=== PATIENT | female | born 1995 | race Caucasian/White ===

== ENCOUNTER 2020-08-08 06:27 | Inpatient (IN) ==
[2020-08-08] MEDS ORDERED: BETADINE SOLN ONE (06:36)
[2020-08-08] MEDS ORDERED: PITOCIN ONE (06:36)
[2020-08-08] MEDS ORDERED: D5 1/2 NS 1000 ML 1,000 ML IV ONE (06:36)
[2020-08-08] MEDS ORDERED: D5LR 1L W PITOCIN 10 UNITS/L 10 UNITS/1,000 ML BAG IV ONE (06:37)
[2020-08-08] MEDS ORDERED: D5 1/2 NS 1L W PITOCIN 20 UNITS/L 20 UNITS/1,000 ML BAG IV ONE (06:37)
[2020-08-08] MEDS ORDERED: LR 1000 ML IV 1,000 ML IV ONE (07:01)
--- NOTE | 2020-08-08 07:05 | DR.OB ---
OB Quick Note - Assessment/Plan Assessment/Plan: L&D 08/08/20 at 6:55am S-No complaint except CTX. O-Afebrile,VSS XMB=716 with good LTV, +accel, no decel. CTX=q 1 1/2 min., mild to moderate by palpation CVX=5cm/75%/0/VTX AROM with clear fluid. IUPC and FSE placed. A-IUP at 39 2/7 weeks for induction P-Begin pitocin augmentation Anticipate
[2020-08-08] MEDS ORDERED: FENTANYL INJ 100 mcg ONE (07:22)
[2020-08-08] MEDS ORDERED: NAROPIN EPIDURAL 0.2% 100 ML ONE (07:23)
[2020-08-08] MEDS ORDERED: MORPHINE SULFATE INJ 2 MG INJ IVP PRN (08:26)
[2020-08-08] MEDS ORDERED: D5LR 1L W PITOCIN 10 UNITS/L 10 UNITS/1,000 ML BAG IV PRN (08:26)
[2020-08-08] MEDS ORDERED: PITOCIN IVP ONE (08:26)
[2020-08-08] MEDS ORDERED: D5 1/2 NS 1000 ML 1,000 ML IV SCH (08:26)
[2020-08-08] MEDS ORDERED: PHENERGAN INJ 25 MG IM PRN ×2 (08:26→10:10)
[2020-08-08] MEDS ORDERED: REGLAN INJ 10 MG VIAL IVP PRN (08:26)
[2020-08-08] MEDS ORDERED: NUBAIN INJ 200 MG VIAL MULTIDOSE IVP PRN (08:26)
[2020-08-08] MEDS ORDERED: ZOFRAN INJ 4 MG VIAL ONE (09:02)
--- NOTE | 2020-08-08 10:54 | DR.OB ---
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 Head delivered over intact perineum. Nuchal cord x 1 noted and reduced. Nose and mouth bulb suctioned. Body delivered over intact perineum. Cord clamped x 2 and cut. Infant handed to attendant. Cord sent for gases. Placenta delivered spontaneously / intact / 3 vessel cord. No CVX / vaginal / perineal tears noted. Viable male , VTX/OA, wt=8'14" and 8/9, stable to NBN. Mother stable to RR. CZG=[id number].
[2020-08-08] MEDS ORDERED: DERMOPLAST PAIN RELIEF SPRAY TOP PRN (11:45)
[2020-08-08] MEDS ORDERED: ADACEL or BOOSTRIX TDaP VACCINE IM ONE ×2 (11:45→16:00)
[2020-08-08] MEDS ORDERED: AMBIEN PO PRN (11:45)
[2020-08-08] MEDS ORDERED: MILK OF MAGNESIA PO PRN (11:45)
[2020-08-08] MEDS: D5 1/2 NS 1000 ML 1,000 ML with PITOCIN 20 UNITS IV SCH ×4 (17:15→22:19)
[2020-08-08] MEDS: MOTRIN TAB 800 MG PO PRN (17:39)
[2020-08-09 04:37] LABS: HEMATOCRIT 29.4 % (36.0-47.0); HEMOGLOBIN 10.1 g/dL (12.0-16.0)
[2020-08-09] MEDS: D5 1/2 NS 1000 ML 1,000 ML with PITOCIN 20 UNITS IV SCH ×2 (05:08)
[2020-08-09] MEDS: MOTRIN TAB 800 MG PO PRN (07:20)
[2020-08-09] MEDS ORDERED: PRENATAL PLUS PO SCH (09:00)
[2020-08-09 11:18] VITALS: BP 113/56
== END 2020-08-09 11:48 | disposition home or self-care (01) | DRG 807 ==
LOC: LD 06:27 → MED/SURG 12:32
PROVIDERS: ADMIT Specialist; ATTEND Specialist
DX: Z01.818 Encounter for other preprocedural examination; Z23 Encounter for immunization; Z37.0 Single live birth; Z87.51 Personal history of pre-term labor; O36.0930 Maternal care for other rhesus isoimmunization, third trimester, not applicable or unspecified; Z3A.39 39 weeks gestation of pregnancy